=== PATIENT | female | born 1990 | race Hispanic/Latino ===

== ENCOUNTER 2016-05-18 21:25 | Emergency (ER) | payer OTHER ==
[~2016-05-18] VITALS: Ht 152.4 cm; Wt 70.5 kg
[~2016-05-18 21:25] MED LIST: DSS100 PO; FES300 PO; VICODIN 5-3251 EACH PO
[2016-05-18 21:29] VITALS: BP 148/89; PULSE 102; RESP 16; O2SAT 97
--- NOTE | 2016-05-18 22:24 | ED.REPORT ---
HPI-Abd Pain F Under 41 Date of Service May 18, 2016 ED Provider: Dr. John Zacarias D.O. A 26 year old female with a history of UTI presents to the ED with suprapubic pain onset 10:00 this morning. The pain is similar to pain with previous UTI. She also reports urinary frequency. The patient denies vaginal discharge or fever. Nursing Notes Stated Complaint: STOMACH PAIN Chief Complaint: Female Abdominal Pain Nursing Notes Reviewed: Yes Allergies: Coded Allergies: No Known Allergies (Verified , 03/17/15) Scheduled Docusate Sod-Expunged Drug, Do Not Renew! (Docusate Sod-Expunged Drug, Do Not Renew!) 100 Mg Capsule 100 MG PO BID Ferrous Sulfate-Expunged Drug, Do Not Renew! (Feosol-Expunged Drug, Do Not Renew !) 325 Mg Tablet 325 MG PO 1-2XD Scheduled PRN Hydrocod/APAP-Expunged, Do Not Renew! (VICODIN 5/325-Expunged Drug, Do Not Renew ) 1 Each Tablet 1-2 EA PO Q4H PRN PRN General Time Seen by MD: 22:24 Chief Complaint Abdominal pain (Suprapubic) Hx Obtained From: Patient Arrived By: Walk-in Sudden in Onset?: No Onset Occurred: 9 - 12 hours ago Symptom Duration: Since onset Location: : Suprapubic Quality: Painful Severity: Current: Moderate Severity: Maximum: Moderate Associated with: Reports: Urinary frequency, Denies: Vaginal discharge Pertinent Negative: Relieved by nothing Context Related History: Reports: Urinary tract infection Recent Healthcare: No recent doctor visit Similar Sx Previous: Yes Past Medical History Past Medical History UTI Gestational hypertension Pyelonephritis in Past Surgical History None Reported Smoking History Unknown if Ever Smoker Ambulatory Status Independent Review of Systems Constitutional: Denies: Fever GI: Reports: Abdominal pain (Suprapubic), Denies: Vomiting Female: Reports: Urinary frequency, Denies: Vaginal discharge Complete sys rev & neg: except as marked. Physical Exam Initial Vital Signs Vital Signs (First) Date Time Temp Pulse Resp B/P Pulse Ox O2 Delivery O2 Flow Rate FiO2 05/18/16 21:29 102 16 148/89 97 Room Air 05/18/16 23:53 36.4 Initial VS: Reviewed Head / Eyes: Atraumatic, Normocephalic ENT: Conjunctiva normal, No scleral icterus Neck: Supple, Full range of motion Skin: Warm, Dry, No cyanosis Neurologic: Alert, Oriented, Nonfocal Psychiatric: Mood/affect normal, Behavior normal, Normal thought content General/Constitutional: Awake, Alert, No acute distress Respiratory / Chest: Breath sounds NL, Breath sounds = bilat, No respiratory distress Cardiovascular: Heart rate NL, Regular rhythm, Heart sounds NL Abdomen: Soft, Non-tender Interpretation & Diagnostics Lab Results Interpretation Test 05/18/16 22:12 05/18/16 22:30 Urine HCG, Qualitative Negative (Negative) Hold Urine Received (Received) Urine Color Yellow (YELLOW) Urine Appearance Hazy (CLEAR,HAZY) Urine pH 5.5 (5.0-8.0) Urine Specific [place] 1.027 (1.003-1.035) Urine Protein Negativemg/dL (NEG,TRACE) Urine Glucose (UA) Negativemg/dL (NEGATIVE) Urine Ketones Tracemg/dL (NEGATIVE) Urine Occult Blood Large (NEGATIVE) Urine Nitrite Negative (NEGATIVE) Urine Bilirubin Negative (NEGATIVE) Urine Urobilinogen Normalmg/dL (NORMAL) Urine Leukocyte Esterase Negative (NEGATIVE) Urine RBC 0-2/hpf (0-2) Urine WBC 0-5/hpf (0-5) Urine Epithelial Cells Few/hpf (NONE-MOD) Urine Crystals None seen (NONE SEEN) Urine Bacteria Moderate/hpf (NONE-FEW) Urine Hyaline Casts Rare/lpf (NONE) Urine Granular Casts None seen (NONE SEEN) Urine Waxy Casts None seen (NONE SEEN) Urine Red Blood Cell Casts None seen (NONE SEEN) Urine White Blood Cell Casts None seen (NONE SEEN) Urine Mucus Present (None Seen) Urine Trichomonas None seen (NONE SEEN) Urine Yeast None (NONE SEEN) Urinalysis Comment None Urine Culture Reflexed Indicated Re-Eval/Medical Decision Med Decision/Clinical Course Healthy 26-year-old female with urinary frequency and suprapubic pain. She denies vaginal discharge or vaginal bleeding or dyspareunia. No history of sexual transmitted diseases. On exam for a benign abdominal evaluation without any discrete tenderness. UA looks positive. We will culture her urine. Course of Bactrim because based on her last 2 cultures Bactrim would take care of both infections. Close outpatient follow-up and culture follow-up recommended. Source of Hx: Old records Re-Evaluation/Progress : Time of Eval: 23:25 Patient Status: Condition improved Re-Evaluation/Progress Note: Discussed with patient lab results, diagnosis, and plan for discharge. Follow-up and return to the ER instructions given. Patient agrees with plan for care and all questions were addressed. Counseled Regarding: Diagnosis, Lab results, Need for follow-up, When/why to return to ED Discharge & Departure Primary Impression: UTI (urinary tract infection) Disposition: Home Discharge Condition All VS Reviewed: Yes Condition: Stable Patient Instructions: Urinary Tract Infection in Women (ED) Additional Instructions: Thank you for entrusting us with your care. Please take Bactrim twice daily for 5 days as prescribed. Drink plenty of liquids to remain hydrated. Call your primary care provider tomorrow for a follow-up appointment in 5-7 days to review urine cultures. Return to the ER with any new or worsening symptoms. Referrals: [facility] (PCP) [facility] Jose E Attestation Portions of this note were transcribed by Georgia Abreu. I, Dr. Zacarias, personally performed the history, physical exam, and medical decision-making; I reviewed and confirmed the accuracy of the information in the transcribed note. Signed by: Jose E Villarreal, 05/18/2016, 23:56 copies to: [facility] John Zacarias DO May 18, 2016 22:24 GEORGIA ABREU May 18, 2016 23:04
[2016-05-18 23:25] LABS: APPEARANCE,URINE HAZY (CLEAR,HAZY); COLOR,URINE YELLOW (YELLOW); OCCULT BLOOD,URINE LARGE (NEGATIVE); PH,URINE 5.5 (5.0-8.0); UROBILINOGEN,URINE NORMAL (NORMAL)
[2016-05-18] MEDS ORDERED: Trimethoprim-Sulfa 160 mg-800 mg Tablet PO ONE (23:30)
[2016-05-18 23:53] VITALS: BP 136/84; PULSE 96; RESP 14; O2SAT 99
== END 2016-05-18 23:54 | disposition home or self-care (01) ==
LOC: SED 21:25
DX: N39.0 Urinary tract infection, site not specified (principal); B96.20 Unspecified Escherichia coli [E. coli] as the cause of diseases classified elsewhere; Z87.440 Personal history of urinary (tract) infections
CPT/HCPCS: 81000; 81025; 87077; 87086; 87088; 87186; 96372; 99284; G0463; J1050